=== PATIENT | female | born 1995 | race Caucasian/White ===

== ENCOUNTER 2022-08-19 09:28 | Emergency (ER) | payer OTHER ==
[~2022-08-19] VITALS: Ht 160 cm; Wt 72.6 kg
[2022-08-19] MEDS ORDERED: NAPROSYN500 MG PO (10:01)
[2022-08-19] MEDS ORDERED: ONDANSETRON ODT4 MG PO (10:01)
== END 2022-08-19 10:09 | disposition home or self-care (01) ==
LOC: ED 09:28
DX: S06.0X0A Concussion without loss of consciousness, initial encounter (principal); S16.1XXA Strain of muscle, fascia and tendon at neck level, initial encounter; V47.5XXA Car driver injured in collision with fixed or stationary object in traffic accident, initial encounter
CPT/HCPCS: 99283; A9270